=== PATIENT | male | born 1965 | race Caucasian/White ===

== ENCOUNTER 2024-12-31 14:23 | Outpatient (AMB) | payer BC, SELFPAY ==
--- NOTE | 2024-12-31 14:32 | AM.OFFWIN_ITS ---
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 KATIE CHISHOLM Allergies No Known Allergies Allergy (Verified 12/31/24 14:36) Do you need a note to return to daycare/school/sports/work: Yes HPI HPI Comments History of Present Illness Details History - The patient is a 59-year-old male pres enting with dyspnea and cough. - Difficulty in achieving a full breath, persistent for a couple of weeks. - New cough, non-productive, present for a couple of weeks. - Reports dizziness and fatigue. - Denies fevers, chest congestion, sneez ing, ear pain or sinus pain. - Significant smoking history of approxi mately 1PPD for 30 years. - No prior diagnosis of COPD or pulmonar y function testing. Does not see a PCP regularly. Doesn't know who his PCP is - no leg swelling, no family or personal history of blood clots Physical Exam General: Cooperative, healthy appearing, comfortable and no acute distress Orientation/consciousness: Patient oriented x3 Limitations: No limitations Head: Normal to inspection Ears: Hearing grossly normal bilaterally, external ears normal, EACs normal bilaterally and TM's normal bilaterally Nose: Normal external nose present, Normal nares present and No nasal discharge present Face and sinus: Normal facial exam and Yes sinuses nontender Mouth: Normal oral and palatal mucosa present and moist mucous membranes Throat: Yes tonsils normal, Yes uvula midline. Posterior oropharynx erythema, no exudates Eyes: Appearance normal, both eyes and all related structures Neck: Normal visual inspection, full ROM Respiratory: Clear to auscultation bilaterally. Normal respiratory effort, able to speak in complete sentences, Actively coughing, no respiratory distress, not tachypneic, no tripod positioning and no use of accessory muscles Cardiovascular: Regular rate and rhythm. Normal S1 and S2 Skin: No rashes or lesions noted Neuro: Patient oriented x3 Extremities: Normal to inspection and Yes no clubbing, cyanosis or edema Review of Systems - Respiratory: Reports dyspnea and non-p roductive cough. Denies chronic cough. - Neurological: Reports dizziness. Denie s syncope. - General: Reports fatigue. - ENT: Denies head congestion, ear pain, sinus pain. All systems reviewed and are unremarkable except as noted in HPI Physical Exam Vital Signs: Last Vital Signs Temp 98.6 F 12/31/24 14:34 Pulse 96 12/31/24 14:34 Resp 15 12/31/24 14:34 BP 108/60 12/31/24 14:34 Pulse Ox 96 12/31/24 14:34 Oxygen Delivery Method Room Air 12/31/24 14:34 BMI result Body Mass Index 23.3 Assessment & Plan Assessment & Plan (1) Cough: Code(s): R05.9 - Cough, unspecified Qualifiers: Cough type: subacute Qualified Code(s): R05.2 - Subacute cough Plan: Plan Patient was informed and verbally consented to the use of an ambient scribe for clinic note documentation during this visit. - VSS, pt well appearing and PE unremarkable. - Performed a respiratory panel and obtain a chest x-ray to rule out pneumonia or other acute conditions. - Prescribe an inhaler to alleviate symptoms. - Suspected COPD due to smoking history; recommend further evaluation with a primary care physician. Gave patient [facility] business card with phone number to call to establish care as office is taking patients rather quickly since it's a new office with new providers. Encouraged him to make an appt and get regular healthcare. - Explained to patient that a Pulmonary Embolism cannot be ruled out; advise seeking emergency care if symptoms worsen, explained what a PE is and risks of going without treating it. Cannot PERC out as pt is over age 50. O2 sat 96% and HR 96, both are WNL so PE less likely. Wells score 0. Orders: Orders Resp Pathogen Panel - [facility] Today J06.9 - Acute upper respiratory infection, unspecified XR chest 2V Today R05.9 - Cough, unspecified Medications: New albuterol sulfate 90 mcg/actuation 2 puffs inhalation Q6H PRN 8.5 grams 0RF shortness of breath or wheezing or cough Coding Level of Care Code New Pt Level 4 (52118) Diagnoses Subacute cough R05.2 Cough type: subacute
[2024-12-31 14:34] VITALS: BP 108/60; PULSE 96; RESP 15; TEMP 37; O2SAT 96; BMI 23.3
== END 2024-12-31 15:00 | disposition home or self-care (01) ==
PROVIDERS: Visit Provider Physician Assistant
DX: R05.2 Subacute cough (principal)

== ENCOUNTER 2024-12-31 14:23 | Outpatient (REF) | payer BC, SELFPAY ==
--- NOTE | ~2024-12-31 | XR_ITS ---
EXAMINATION: XR CHEST CLINICAL INFORMATION: R05.9 - Cough, unspecified COMPARISON: None available. TECHNIQUE: 2 views of the chest were obtained. FINDINGS: The cardiac, hilar, and mediastinal contours are normal. There are tiny layering pleural effusions bilaterally, left greater than right. There is minimal associated basilar passive atelectasis. Lungs are otherwise clear. There is no pneumothorax. There is no focal osseous or soft tissue abnormality. XR/XR chest 2V IMPRESSION: 1. There are tiny bilateral pleural effusions. 2. The lungs are otherwise clear. Electronically signed by: Vick Blanc MD 12/31/2024 03:17 PM EDT
[2025-01-01 09:20] LABS: Chlamydia pneumoniae PCR Not Detected (Not Detect.); Coronavirus 229E PCR Not Detected (Not Detect.); Coronavirus HKU1 PCR Not Detected (Not Detect.); Coronavirus NL63 PCR Not Detected (Not Detect.); Coronavirus OC43 PCR Not Detected (Not Detect.); RSV PCR Not Detected (Not Detect.); Rhino/Enterovirus PCR Not Detected (Not Detect.); SARS-CoV-2 PCR Not Detected (Not Detect.)
[2025-01-01 09:30] LABS: Influenza A H1 PCR Not Detected (Not Detect.); Influenza A H1-2009 PCR Not Detected (Not Detect.); Influenza A H3 PCR Not Detected (Not Detect.)
== END 2024-12-31 14:24 | disposition home or self-care (01) ==
LOC: HO.HMGCX 14:23
PROVIDERS: Visit Provider Physician Assistant
DX: R05.2 Subacute cough (principal); J06.9 Acute upper respiratory infection, unspecified; R06.00 Dyspnea, unspecified; R42 Dizziness and giddiness; R53.83 Other fatigue; Z87.891 Personal history of nicotine dependence
CPT/HCPCS: 71046; 87633

== ENCOUNTER → 2024-12-31 15:09 | Outpatient (BNV) | payer BC, SELFPAY | PROVIDERS: Visit Provider Radiology Diagnostic Radiology | DX: J90 Pleural effusion, not elsewhere classified (principal) | CPT/HCPCS: 71046 ==

== ENCOUNTER 2025-01-02 08:04 | Outpatient (AMB) | payer BC, SELFPAY ==
--- NOTE | 2025-01-02 08:09 | MHC.PC.OV ---
Vital Signs 01/02/25 08:11 Height 5 ft 11 in Weight 167 lb 4 oz BMI 23.3 BP 130/72 Blood Pressure Location Lt brachial Position Sitting Pulse 92 Pulse Source Pulse Oximeter Temp 97.3 F Temp Source Temporal Artery Scan Pulse Oximetry (%) 99 Oxygen Delivery Method Room Air Intake Visit Reasons: pleural effusion Intake Note: Patient is here to follow up on Pleural effusion. 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 Accompanied by: Self / Same As Patient Allergies No Known Allergies Allergy (Verified 01/02/25 08:10) Medication List - Last Reconciled 01/02/25 by Vikki Ramires MD albuterol sulfate 90 mcg/actuation 2 puffs inhalation Q6H PRN Tobacco use date assessed: 01/02/25 Dental Screening Dental Screen Date: 01/02/25 Did you have a dental visit in the last 12 months?: No Did you have a dental problem in the last 6 months where you did not have access to dental care?: No Was dental information given to patient?: No HPI HPI Comments History of Present Illness Details The patient is a 59-[facility] His main symptoms currently are a persistent cough and episodes of lightheadedness. The cough has been ongoing for at least three weeks, characterized by chest tightness and initially non-productive nature. The patient reported improvement after switching from NyQuil to a Mucinex nighttime product, which increased the productivity of the cough. He also used an albuterol inhaler, though its effectiveness is uncertain. The patient experienced episodes of lightheadedness, describing a sensation arias to being drunk, particularly when walking long distances at work or shopping. These episodes have occurred more than once, with the patient noting a possible correlation with increased physical activity. The patient has a history of atrial fibrillation, which was self-reported during a past hospital visit. He described the sensation as his heart feeling like a fish out of water, occurring while at rest. The patient has a significant smoking history of over 30 years and expresses readiness to quit, considering options like patches or medication. He has not tried any cessation medications previously but is open to trying varenicline, despite potential side effects like vivid dreams. Preventative care measures discussed include a colonoscopy screening and a tetanus vaccination, which the patient agreed to receive. [facility] Surgical History (Updated 01/02/25 @ 08:15 by MARYBETH Douglas) History of hernia surgery Social History (Updated 01/02/25 @ 08:16 by MARYBETH Douglas) Housing: House Alcohol intake: current Alcohol intake frequency: a few times a week Alcohol type: beer Patient Tobacco Use Status: Current everyday Tobacco user Tobacco use type: Cigarette Cigarette Packs Per Day: 1 Cigarettes Per Day: 20 e-Cigarette/Vaping Use: Never Used Second Hand Smoke Exposure: Yes service: Yes Current occupational status: employed Current occupation: [employer] Cognitive needs: No Hearing needs: No Vision needs: No Questionnaire PHQ-9 Over the last 2 weeks, how often have you been bothered by any of the following problems? 1. Little interest or pleasure in doing things: not at all 2. Feeling down, depressed, or hopeless: not at all 3. Trouble falling or staying asleep, or sleeping too much: not at all 4. Feeling tired or having little energy: several days 5. Poor appetite or overeating: several days 6. Feeling bad about yourself - or that you are a failure or have let yourself or your family down: not at all 7. Trouble concentrating on things, such as reading the newspaper or watching television: not at all 8. Moving or speaking so slowly that other people could have noticed. Or the opposite - being so fidgety or restless that you have been moving around a lot more than usual: not at all 9. Thoughts that you would be better off or of hurting yourself in some way: not at all Total score: 2 Depression Screening Interpretation: Positive Depression Screening Done: Yes Source: Developed by Drs. Vernon Buenrostro, Margaret Rajan, Erwin Bobo and colleagues, with an educational rober from [employer]. Thrive Questionnaire Date Thrive assessed: 01/02/25 I am a: Patient What is your living situation today?: I have a steady place to live Within the past 12 months, did the food you bought not last and you didn't have the money to get more?: Never true Within the past 12 months, did you worry whether your food would run out before you got money to buy more?: Never true Do you have trouble paying for medicines?: No Do you have trouble getting transportation to medical appointments?: No Do you have trouble paying your heating and electricity bill?: No Do you have trouble taking care of your child, family member or friend?: No Do you have trouble with day-to-day activities such as bathing, preparing meals, shopping, managing finances, etc.?: No Are you currently unemployed and looking for a job?: No Are you interested in more education?: No Please select the resources that you would like help with: None Currently or been in a relationship where the following occur: No concerns reported THRIVE Score: 0 AUDIT C Alcohol Use Questionnaire (AUDIT-C) 1. How often do you have a drink containing alcohol?: Monthly or less 2. How many drinks containing alcohol do you have on a typical day when you are drinking?: 1 or 2 3. How often do you have six or more drinks on one occasion?: Never Total Score: 1 CLEMENCIA-7 AMB Questionnaire CLEMENCIA-7 Date CLEMENCIA - 7 assessed: 01/02/25 Feeling nervous, anxious, or on edge: 0 = Not at all Not being able to stop or control worryin = Not at all Worrying too much about different things: 0 = Not at all Trouble relaxin = Not at all Being so restless that it is hard to sit still: 0 = Not at all Becoming easily annoyed or irritable: 0 = Not at all Feeling afraid as if something awful might happen: 0 = Not at all Total CLEMENCIA-7 score (0-4 normal; 5-9 mild; 10-14 moderate; 15-21 severe): 0 Source: Developed by Drs. Vernon Buenrostro, Margaret Rajan, Erwin Bobo and colleagues, with an educational rober from [employer]. Review of Systems Const Details: Positives besides what was mentioned in HPI are in BOLD Constitutional: No Weight Change, No Fever, No Chills, No Night Sweats, No Fatigue, No Malaise ENT/Mouth: No Hearing Changes, No Ear Pain, No Nasal Congestion, No Sinus Pain, No Hoarseness, No sore throat, No Rhinorrhea, No Swallowing Difficulty Eyes: No Eye Pain, No Swelling, No Redness, No Foreign Body, No Discharge, No Vision Changes Cardiovascular: No Chest Pain, No SOB, No PND, No Dyspnea on Exertion, No Orthopnea, No Claudication, No Edema, No Palpitations Respiratory: No Cough, No Sputum, No Wheezing, No Smoke Exposure, No Dyspnea Gastrointestinal: No Nausea, No Vomiting, No Diarrhea, No Constipation, No Pain, No Heartburn, No Anorexia, No Dysphagia, No Hematochezia, No Melena, No Flatulence, No Jaundice Genitourinary: No Dysmenorrhea, No DUB, No Dyspareunia, No Dysuria, No Urinary Frequency, No Hematuria, No Urinary Incontinence, No Urgency, No Flank Pain, No Urinary Flow Changes, No Hesitancy Musculoskeletal: No Arthralgias, No Myalgias, No Joint Swelling, No Joint Stiffness, No Back Pain, No Neck Pain, No Injury History Skin: No Skin Lesions, No Pruritis, No Hair Changes, No Breast/Skin Changes, No Nipple Discharge Neuro: No Weakness, No Numbness, No Paresthesias, No Loss of Consciousness, No Syncope, No Dizziness, No Headache, No Coordination Changes, No Recent Falls Psych: No Anxiety/Panic, No Depression, No Insomnia, No Personality Changes, No Delusions, No Rumination, No SI/HI/AH/VH, No Social Issues, No Memory Changes, No Violence/Abuse Hx., No Eating Concerns Heme/Lymph: No Bruising, No Bleeding, No Transfusions History, No Lymphadenopathy Endocrine: No Polyuria, No Polydipsia, No Temperature Intolerance Physical exam (Primary Care) Vital Signs: Last Vital Signs Temp 97.3 F 01/02/25 08:11 Pulse 92 01/02/25 08:11 BP 130/72 01/02/25 08:11 Pulse Ox 99 01/02/25 08:11 Oxygen Delivery Method Room Air 01/02/25 08:11 BMI result Body Mass Index 23.3 Tobacco/Smoking Status: Tobacco use Status Tobacco use date assessed 01/02/25 01/02/25 08:17 Patient Tobacco Use Status Current everyday Tobacco 01/02/25 08:17 Tobacco use type Cigarette 01/02/25 08:17 e-Cigarette/Vaping Use Never Used 01/02/25 08:17 PHQ-9: PHQ-9 Score PHQ-9: Total score 2 01/02/25 08:29 Depression Screening Interpretation: Positive Thrive Assessment: Date of Thrive Assessment Date Thrive assessed 01/02/25 01/02/25 08:17 Currently or been in a relationship where the following occur: No concerns reported Const Other: Pertinent findings are in BOLD GENERAL APPEARANCE NAD, activity normal for age, well developed/ well nourished, no cyanosis, pallor, or diaphoresis. EYES lids/conjunctiva normal. EARS/NOSE/THROAT Mucous membranes moist, nares normal, lips/teeth normal uvula midline without oral pharyngeal erythema, exudate or swelling TMs normal bilaterally. No lymphangitis/lymphedema. HEAD/NECK normocephalic atraumatic, no facial trauma, neck is supple. RESPIRATORY respiratory effort normal, speaks in full sentences, no tripod position, no accessory muscle use. Lungs clear to auscultation without rhonchi, wheezes, rales CARDIAC Regular rate and rhythm, no edema. ABDOMINAL Soft, ND/NT. No evidence of fluid wave. No pulsatile masses on exam, rebound tenderness, Green sign or pain over Mcburney's point. MUSCLES/EXTREMITIES No abnormal range of motion, no swelling. SKIN Warm, pink and dry. No rashes, dermatoses, petechiae or lesions. NEUROLOGICAL Speech is clear and appropriate. Normal level of consciousness. Gait and coordination are normal. 5/5 strength in all extremities. PSYCH Normal mood and affect. Judgement/competence is appropriate Immunizations Boostrix Tdap 2.5 Lf unit-8 mcg-5 Lf/0.5 mL intramuscular syringe Performing Provider: Vikki Ramires MD [facility] Administered by: Lulu Sanderson RN on 01/02/25 09:03 Dose Route Admin Location Dispensed Lot Number Expiration Date [facility] Fire Prevention Chief 0.5 mL IM Right Deltoid 0.5 mL [id number] 01/22/27 [id number] MLW Squared Total Dispensed Waste 0.5 mL 0 % VIS Given Date VIS Provided VIS Publication Date 01/02/25 Single Vaccine 20 Eligibility Eligibility Date Funding Source Not [facility] Eligible 01/02/25 Private Coding Level of Care Code New Pt Level 4 (72671) New Pt Prev Care 40-64y(14013) Diagnoses Healthcare maintenance Z00.00 Subacute cough R05.2 Cough type: subacute Pleural effusion J90 Lightheadedness R42 Tobacco use disorder F17.200 A-fib I48.91 Time Spent (min) 40 Assessment & Plan Assessment & Plan (1) Healthcare maintenance: Code(s): Z00.00 - Encounter for general adult medical examination without abnormal findings Category: Medical Plan: CBC, CMP, Lipid panel, A1C, TSH w T4, vit D. Ordered today. Shingles 2 doses when >50 yo. Patient reports getting them in the past. COVID: two doses. Declined. Pneumococcal: 19-64. Retail pharmacy. Flu vaccine: Declined. Tdap: Ordered today. Colonoscopy: 45-75. Ordered. AAA: 65 -75. CT lun - 80. Referred to pulm. PSA: 50 -70 every two years. Ordered today. HIV: Ordered today. HBV: Ordered today. HCV: Ordered today. (2) Cough: Code(s): R05.9 - Cough, unspecified Category: Medical Qualifiers: Cough type: subacute Qualified Code(s): R05.2 - Subacute cough Plan: Continue with symptomatic treatment. OTC cough syrup. (3) Pleural effusion: Code(s): J90 - Pleural effusion, not elsewhere classified Category: Medical Plan: CT scan to asses for the extension of the pleural effusion. Pulm referral. (4) Lightheadedness: Code(s): R42 - Dizziness and giddiness Category: Medical Plan: It could be realted to lung vs heart problems. Patient had episodes of A fib in the past. Holter monitor for 7 days ordered. (5) Tobacco use disorder: Code(s): F17.200 - Nicotine dependence, unspecified, uncomplicated Category: Medical Plan: Verinicline started as patient is motivated to stop smoking. Pulm referral for lung screening. PFT to rule out COPD. Continue Albuterol for now. (6) A-fib: Code(s): I48.91 - Unspecified atrial fibrillation Category: Medical Plan: TSH ordered. Holter monitor. Depending on holter monitor results we will check for the need of A fib treatment. Plan I discussed with the patient the importance of continuing Mucinex for his cough and the need for a pulmonary function test before seeing a lung specialist. We also talked about the Holter monitor to assess for atrial fibrillation and the possibility of a CT scan, depending on insurance coverage. The patient expressed readiness to quit smoking, and we discussed using varenicline or nicotine patches as cessation aids. Preventative measures such as a colonoscopy screening and tetanus vaccination were agreed upon and administered. Orders: Orders HIV Ab/Ag Today Z00.00 - Encounter for general adult medical examination without abnormal findings TSH reflex Free T4 Today Z00.00 - Encounter for general adult medical examination without abnormal findings TDaP Immunization Today Z23 - Encounter for immunization Complete Blood Count Auto Diff Today Z00.00 - Encounter for general adult medical examination without abnormal findings Comprehensive Met. Panel Today Z00.00 - Encounter for general adult medical examination without abnormal findings Hemoglobin A1c Today Z00.00 - Encounter for general adult medical examination without abnormal findings Hepatitis C Antibody Reflex Today Z00.00 - Encounter for general adult medical examination without abnormal findings Hepatitis B Surface Antigen Today Z00.00 - Encounter for general adult medical examination without abnormal findings Hepatitis B Surface Antibody Today Z00.00 - Encounter for general adult medical examination without abnormal findings Hepatitis B Core Antibody Today Z00.00 - Encounter for general adult medical examination without abnormal findings Prostate Specific Antigen Today Z00.00 - Encounter for general adult medical examination without abnormal findings Vitamin D 25-OH (D2 and D3) Today Z00.00 - Encounter for general adult medical examination without abnormal findings Lipid Panel Today Z00.00 - Encounter for general adult medical examination without abnormal findings CT chest wo IV con Today J90 - Pleural effusion, not elsewhere classified, R05.2 - Subacute cough ECG 7 day holter monitor Today I48.91 - Unspecified atrial fibrillation PFT pulmonary function test Today F17.200 - Nicotine dependence, unspecified, uncomplicated, R05.2 - Subacute cough Referrals Pulmonology Referral F17.200 - Nicotine dependence, unspecified, uncomplicated, J90 - Pleural effusion, not elsewhere classified, R05.2 - Subacute cough Open Access Screening Colonoscopy Referral Z12.11 - Encounter for screening for malignant neoplasm of colon, Z12.12 - Encounter for screening for malignant neoplasm of rectum Medications: New varenicline tartrate 1 mg PO BID 56 tabs 0RF varenicline tartrate administer on days 4, 5, 6, and 7 of therapy 0.5 mg PO BID 10 tabs 0RF
[2025-01-02 08:11] VITALS: BP 130/72; PULSE 92; TEMP 36.3; O2SAT 99; BMI 23.3
== END 2025-01-02 09:07 | disposition home or self-care (01) ==
LOC: HO.HMCH 08:05
PROVIDERS: PCP Internal Medicine; Visit Provider Internal Medicine
DX: Z00.00 Encounter for general adult medical examination without abnormal findings (principal); R05.2 Subacute cough; I48.91 Unspecified atrial fibrillation; J90 Pleural effusion, not elsewhere classified; R42 Dizziness and giddiness; F17.200 Nicotine dependence, unspecified, uncomplicated; Z23 Encounter for immunization

== ENCOUNTER → 2025-01-02 08:04 | Outpatient (BNVA) | payer BC, SELFPAY | PROVIDERS: Visit Provider Internal Medicine | DX: Z23 Encounter for immunization (principal); Z13.31 Encounter for screening for depression; Z13.39 Encounter for screening examination for other mental health and behavioral disorders | CPT/HCPCS: 90471; 90715; 96127 ==

== ENCOUNTER 2025-01-03 07:02 | Outpatient (REF) | payer BC, SELFPAY ==
[2025-01-03 08:19] LABS: Hematocrit 37.0 % (42.0-52.0); Hemoglobin 12.2 g/dl (14.0-18.0); Imm Gran Abs Auto 0.07 X10*3/uL (0.00-0.03); Imm Gran Pct Auto 0.8 % (0.0-0.4); Lymphocytes Absolute Auto 1.6 X10*3/uL (1.2-4.9); MANUAL DIFF FLAG SCAN; Mean Corpuscular HGB Conc 33.0 g/dl (31.0-36.0); Mean Corpuscular Hemoglobin 30.4 pg (27.0-33.0); Mean Corpuscular Volume 92.3 fL (80.0-98.0); NRBC Abs Auto 0.000 X10*3/uL (0.0-0.012); NRBC Pct Auto 0.0 /100WBC (0.0-0.2); Platelet Count 114 X10*3/uL (160-400); Red Blood Count 4.01 X10*6/uL (4.60-5.80); SCAN SMEAR FLAG 1; White Blood Count 8.7 X10*3/uL (4.8-10.8)
[2025-01-03 08:30] LABS: Total Hemoglobin (HGBA1C) 3175.6094 umol/L
[2025-01-03 09:20] LABS: Prostate Specific Antigen < 0.10 ng/mL (<0.05-4.0)
[2025-01-03 09:24] LABS: HBS Num1 17.74 mIU/mL (0-7.99); HBc Num1 0.07 S/CO (0.00-0.79); HBsAGNum1 0.43 S/CO (0.00-0.99); HIV Num 1 0.06 S/CO (0.00-0.99); Hepatitis B Surface Antigen Negative (Negative); ~HepC Num1 0.08 S/CO (0.00-0.79); ~Hepatitis B Surface Antibody REACTIVE (Nonreactive); ~Hepatitis C Antibody Nonreactive (Nonreactive)
[2025-01-03 09:25] LABS: Alanine Aminotransferase 16 U/L (0-40); Albumin Level 3.4 g/dL (3.5-5.0); Alkaline Phosphatase 96 U/L (39-117); Anion Gap 10 (12-20); Aspartate Amino Transferase 10 U/L (5-37); Blood Urea Nitrogen 15 mg/dL (9-16); Calcium 8.4 mg/dL (8.4-10.2); Carbon Dioxide 28 mmol/L (22-29); Chloride 105 mmol/L (96-108); Cholesterol 85 mg/dL (<200); Estimated Glomerular Filt Rate > 60; HDL Cholesterol 19 mg/dL (>40); Potassium 4.7 mmol/L (3.3-5.1); Sodium 138 mmol/L (135-145); Total Protein 5.8 g/dL (6.5-8.0); Triglycerides 62 mg/dL (<150)
[2025-01-09 15:23] LABS: Vitamin D 25-OH, D2 <4 ng/mL; Vitamin D 25-OH, D3 31 ng/mL; Vitamin D 25-OH, Total 31 ng/mL (30-100)
== END 2025-01-03 07:03 | disposition home or self-care (01) ==
LOC: HO.LAB 07:02
PROVIDERS: PCP Internal Medicine; Visit Provider Internal Medicine
DX: Z00.00 Encounter for general adult medical examination without abnormal findings (principal); Z12.5 Encounter for screening for malignant neoplasm of prostate; Z11.4 Encounter for screening for human immunodeficiency virus [HIV]; Z13.29 Encounter for screening for other suspected endocrine disorder; Z13.1 Encounter for screening for diabetes mellitus; Z13.21 Encounter for screening for nutritional disorder
CPT/HCPCS: 36415; 80053; 80061; 82306; 83036; 84153; 84443; 85025; 86704; 86706; 86803; 87340; 87389

== ENCOUNTER → 2025-01-13 07:28 | Outpatient (REF) | payer BC, SELFPAY ==
--- NOTE | 2025-01-13 07:30 | HM_ITS ---
Conclusion: 1. Patient was monitored for total period of 6 days and 23 hours 2. Baseline was normal sinus rhythm with average heart rate of 92 beats per minute 3. No significant pauses or arrhythmias noted 4. Frequent sinus tachycardia noted with 23.6% of time heart rate about 100 beats per minute 5. 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
[2025-01-13 09:19] LABS: Reticulocytes Absolute 0.065 X10*6/uL (0.026-0.095)
[2025-01-13 10:16] LABS: Iron 39 mcg/dL (45-160); Percent Iron Saturation 18 % (15-50); Total Iron Binding Capacity 213 mcg/dL (228-428); Unsaturated Iron Binding 174 ug/dL
[2025-01-13 11:55] LABS: Folate 6.8 ng/mL (> or = 4.0); Vitamin B12 486 pg/mL (200-900)
== END ==
LOC: HO.CARD 07:28
PROVIDERS: PCP Internal Medicine; Visit Provider Internal Medicine
DX: I48.91 Unspecified atrial fibrillation (principal); D64.9 Anemia, unspecified; D69.6 Thrombocytopenia, unspecified
CPT/HCPCS: 36415; 82607; 82746; 83090; 83540; 83921; 85045; 86880; 93242

== ENCOUNTER → 2025-01-13 07:30 | Outpatient (BNV) | payer BC, SELFPAY | PROVIDERS: PCP Internal Medicine; Visit Provider Internal Medicine Cardiovascular Disease | DX: R00.0 Tachycardia, unspecified (principal) | CPT/HCPCS: 93244 ==

== ENCOUNTER 2025-01-22 10:02 | Outpatient (REF) | payer BC, SELFPAY ==
--- NOTE | ~2025-01-22 | CT_ITS ---
EXAMINATION: CT CHEST WITHOUT IV CONTRAST INDICATION: R05.2 - Subacute cough COMPARISON: Correlation is made with PA and lateral views of the chest dated 12/31/2024. TECHNIQUE: Helical CT scan of the chest was performed without intravenous contrast. Coronal and sagittal reformatted images were generated and reviewed. This CT exam was performed with one or more of the following dose reduction techniques: automated exposure control, adjustment of the mA and/or kV according to patient size, use of iterative reconstruction technique. DLP: 164 mGy-cm CHEST: THYROID: The thyroid is unremarkable. LUNGS: There are scattered tree-in-bud opacities throughout all lobes of both lungs, greatest in the upper lobes. Findings are compatible with small airways disease. There are no focal airspace opacities or pulmonary nodules. MEDIASTINUM: There is no mediastinal lymphadenopathy. NATO: Evaluation of the hilar regions is limited by lack of intravenous contrast material. CARDIOVASCULATURE: The heart is normal in size. There is a small pericardial effusion versus diffuse pericardial thickening. The thoracic aorta is normal in caliber. DEGREE OF CORONARY CALCIFICATION: mild PLEURA: There is a trace right pleural effusion and a small left pleural effusion. No pneumothorax. MAIN AIRWAYS: The mainstem bronchi and proximal branches are patent. AXILLA: There is no axillary lymphadenopathy. BONES AND SOFT TISSUES: Unremarkable UPPER ABDOMEN: The visualized portion of the liver has an unremarkable unenhanced appearance. There is a 3.6 x 2.8 cm right adrenal mass measuring -15 HU in density, consistent with an adenoma. The left adrenal gland is unremarkable. The spleen is enlarged, but incompletely imaged. CT/CT chest wo IV con IMPRESSION: 1. Scattered tree-in-bud opacities greatest in the upper lobes, compatible with small airways disease. Correlation with pulmonary function tests is suggested. 2. Trace right pleural effusion and small left pleural effusion. 3. Small pericardial effusion versus diffuse pericardial thickening. 4. 3.6 x 2.8 cm right adrenal adenoma. 5. Splenomegaly. Electronically signed by: Vernon Wahl MD 01/22/2025 10:52 AM EDT
== END 2025-01-22 10:03 | disposition home or self-care (01) ==
LOC: HO.CT 10:02
PROVIDERS: PCP Internal Medicine; Visit Provider Internal Medicine
DX: R05.2 Subacute cough (principal); J90 Pleural effusion, not elsewhere classified
CPT/HCPCS: 71250

== ENCOUNTER → 2025-01-22 10:04 | Outpatient (BNV) | payer BC, SELFPAY | PROVIDERS: PCP Internal Medicine; Visit Provider Radiology Diagnostic Radiology | DX: J90 Pleural effusion, not elsewhere classified (principal); R91.8 Other nonspecific abnormal finding of lung field; D35.01 Benign neoplasm of right adrenal gland; R16.1 Splenomegaly, not elsewhere classified | CPT/HCPCS: 71250 ==

== ENCOUNTER 2025-02-03 09:16 | Outpatient (AMB) | payer BC, SELFPAY ==
--- NOTE | 2025-02-03 10:04 | MHC.PC.OV ---
Vital Signs 02/03/25 10:06 Height 5 ft 11 in Weight 173 lb 6 oz BMI 24.2 BP 124/68 Blood Pressure Location Lt brachial Position Sitting Pulse 82 Pulse Source Pulse Oximeter Temp 97.3 F Temp Source Temporal Artery Scan Pulse Oximetry (%) 97 Oxygen Delivery Method Room Air Intake Visit Reasons: 1mth f/u Intake Note: Patient is here to follow up on pleural effusion. 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: Not Required per policy Accompanied by: Self / Same As Patient Allergies No Known Allergies Allergy (Verified 02/03/25 10:06) Medication List - Last Reconciled 02/03/25 by Vikki Ramires MD albuterol sulfate 90 mcg/actuation 2 puffs PO Q6H PRN varenicline tartrate 1 mg PO BID Tobacco use date assessed: 02/03/25 Dental Screening Dental Screen Date: 01/02/25 HPI HPI Comments History of Present Illness Details The patient is a 59-year-old male with PMH of TUD, pleural effusion, vit D deficiency, OMID, thrombocytopenia, pericardial effusion presenting for a one-month follow-up for lightheadedness. The patient reports a couple of episodes of lightheadedness at work since his last visit. A Holter monitor worn during these episodes did not capture any arrhythmias, including atrial fibrillation. The patient has a history of pericardial effusion and pulmonary effusion; a recent chest CT showed the pleural effusion is improving. He has upcoming appointments with a customer relations advisor in March and a life tester [employer] motors in June. The patient reports having quit smoking and is currently taking varenicline for smoking cessation. He also takes albuterol. Previous lab work showed low iron and vitamin D levels, and he has started taking cbkk-qbg-[id number] supplements for both. Screening tests for HIV and hepatitis C were negative, and he has immunity to hepatitis B from vaccination. [facility] Surgical History History of hernia surgery Social History (Updated 02/03/25 @ 10:11 by MARYBETH Douglas) Housing: House Alcohol intake: current Alcohol intake frequency: a few times a week Alcohol type: beer Patient Tobacco Use Status: Former Tobacco user Tobacco use type: Cigarette Cigarette Packs Per Day: 1 Cigarettes Per Day: 20 e-Cigarette/Vaping Use: Never Used Second Hand Smoke Exposure: Yes service: Yes Current occupational status: employed Current occupation: [employer] Cognitive needs: No Hearing needs: No Vision needs: No Questionnaire Thrive Questionnaire Date Thrive assessed: 01/02/25 I am a: Patient What is your living situation today?: I have a steady place to live Within the past 12 months, did the food you bought not last and you didn't have the money to get more?: Never true Within the past 12 months, did you worry whether your food would run out before you got money to buy more?: Never true Do you have trouble paying for medicines?: No Do you have trouble getting transportation to medical appointments?: No Do you have trouble paying your heating and electricity bill?: No Do you have trouble taking care of your child, family member or friend?: No Do you have trouble with day-to-day activities such as bathing, preparing meals, shopping, managing finances, etc.?: No Are you currently unemployed and looking for a job?: No Are you interested in more education?: No Please select the resources that you would like help with: None Currently or been in a relationship where the following occur: No concerns reported THRIVE Score: 0 CLEMENCIA-7 AMB Questionnaire CLEMENCIA-7 Date CLEMENCIA - 7 assessed: 01/02/25 Source: Developed by Drs. Vernon Buenrostro, Margaret Rajan, Erwin Bobo and colleagues, with an educational rober from [employer]. Review of Systems Const Details: As per HPI. Physical exam (Primary Care) Vital Signs: Last Vital Signs Temp 97.3 F 02/03/25 10:06 Pulse 82 02/03/25 10:06 BP 124/68 02/03/25 10:06 Pulse Ox 97 02/03/25 10:06 Oxygen Delivery Method Room Air 02/03/25 10:06 BMI result Body Mass Index 24.2 Tobacco/Smoking Status: Tobacco use Status Tobacco use date assessed 02/03/25 02/03/25 10:12 Patient Tobacco Use Status Former Tobacco user 02/03/25 10:12 Tobacco use type Cigarette 02/03/25 10:11 e-Cigarette/Vaping Use Never Used 02/03/25 10:11 Thrive Assessment: Date of Thrive Assessment Date Thrive assessed 01/02/25 02/03/25 10:05 Currently or been in a relationship where the following occur: No concerns reported Const Other: Pertinent findings are in BOLD GENERAL APPEARANCE NAD, activity normal for age, well developed/ well nourished, no cyanosis, pallor, or diaphoresis. EYES lids/conjunctiva normal. EARS/NOSE/THROAT Mucous membranes moist, nares normal, lips/teeth normal uvula midline without oral pharyngeal erythema, exudate or swelling TMs normal bilaterally. No lymphangitis/lymphedema. HEAD/NECK normocephalic atraumatic, no facial trauma, neck is supple. RESPIRATORY respiratory effort normal, speaks in full sentences, no tripod position, no accessory muscle use. Lungs clear to auscultation without rhonchi, wheezes, rales CARDIAC Regular rate and rhythm, no edema. ABDOMINAL Soft, ND/NT. No evidence of fluid wave. No pulsatile masses on exam, rebound tenderness, Green sign or pain over Mcburney's point. MUSCLES/EXTREMITIES No abnormal range of motion, no swelling. SKIN Warm, pink and dry. No rashes, dermatoses, petechiae or lesions. NEUROLOGICAL Speech is clear and appropriate. Normal level of consciousness. Gait and coordination are normal. 5/5 strength in all extremities. PSYCH Normal mood and affect. Judgement/competence is appropriate Coding Level of Care Code Est Pt Level 4 (33479) Diagnoses Pericardial effusion I31.39 Pleural effusion J90 Lightheadedness R42 Tobacco use disorder F17.200 Iron deficiency anemia, unspecified iron deficiency anemia type D50.9 Iron deficiency anemia type: unspecified iron deficiency Vitamin D deficiency E55.9 Time Spent (min) 45 Assessment & Plan Assessment & Plan (1) Pericardial effusion: Code(s): I31.39 - Other pericardial effusion (noninflammatory) Category: Medical Plan: Echo ordered to assess for the status of fluid. Recent CT showing pericardial effusion. Patient has cardiology appointment in 06/2025. (2) Pleural effusion: Code(s): J90 - Pleural effusion, not elsewhere classified Category: Medical Plan: - Most recent CT scan showed small pleural effusion bilaterally. - The patient has an appointment with a customer relations advisor on April 01. - A pulmonary function test is scheduled for March 18. - Continue albuterol as prescribed. (3) Lightheadedness: Code(s): R42 - Dizziness and giddiness Category: Medical Plan: - The recent Holter monitor results were negative for any arrhythmias, including atrial fibrillation, making a cardiac electrical cause of his symptoms less likely. (4) Tobacco use disorder: Code(s): F17.200 - Nicotine dependence, unspecified, uncomplicated Category: Medical Plan: - Continue taking varenicline for smoking cessation. - The patient was encouraged to continue his smoking cessation efforts. (5) Iron deficiency anemia: Code(s): D50.9 - Iron deficiency anemia, unspecified Category: Medical Qualifiers: Iron deficiency anemia type: unspecified iron deficiency Qualified Code(s): D50.9 - Iron deficiency anemia, unspecified Plan: - The patient is to continue taking oovh-lcr-[id number] iron supplements. (6) Vitamin D deficiency: Code(s): E55.9 - Vitamin D deficiency, unspecified Category: Medical Plan: - The patient is to continue taking hkwj-sib-abnhgow vitamin D supplements. Plan I reviewed the Holter monitor results with the patient, which were negative for atrial fibrillation or other arrhythmias, reassuring him that his lightheadedness does not appear to have a cardiac electrical cause. I informed the patient that I will order an echocardiogram to evaluate the fluid around his heart. We discussed his upcoming appointments, including a pulmonary function test in February, a visit with a lung specialist in March, and a cardiology visit in June. I also reminded him of the need to schedule the previously referred colonoscopy. I encouraged him to continue his smoking cessation efforts and to continue taking varenicline as directed. We confirmed he is taking neex-ncz-tmxsrzw supplements for his low iron and vitamin D levels. A follow-up appointment was scheduled for April. Orders: Orders CA echo transthoracic complete Today I31.39 - Other pericardial effusion (noninflammatory)
[2025-02-03 10:06] VITALS: BP 124/68; PULSE 82; TEMP 36.3; O2SAT 97; BMI 24.2
== END 2025-02-03 10:36 | disposition home or self-care (01) ==
LOC: HO.HMCH 09:17
PROVIDERS: Visit Provider Internal Medicine
DX: I31.39 Other pericardial effusion (noninflammatory) (principal); J90 Pleural effusion, not elsewhere classified; R42 Dizziness and giddiness; F17.200 Nicotine dependence, unspecified, uncomplicated; D50.9 Iron deficiency anemia, unspecified; E55.9 Vitamin D deficiency, unspecified